=== PATIENT | female | born 1955 | race Caucasian/White ===

== ENCOUNTER 2022-11-11 22:46 | Emergency (ER) | payer OTHER, MEDICAID ==
[~2022-11-11] VITALS: Ht 170.2 cm; Wt 68.0 kg
[~2022-11-11 22:46] MED LIST: ATENOLOL; DOCUSATE; FAMOTIDINE; HCTZ; LISINOPRIL; PEPCID; [UNRECOGNIZED DRUG - OTHER]
[2022-11-11] MEDS ORDERED: HYDROMORPHONE HCL/PF 2MG/ML CPJ IV ONE (23:30)
[2022-11-11] MEDS ORDERED: CYCLOBENZAPRINE 10MG TABLET PO ONE (23:30)
[2022-11-11] MEDS ORDERED: PREDNISONE 20MG TABLET PO ONE (23:30)
[2022-11-12] MEDS ORDERED: KETOROLAC 30MG/ML VIAL IV ONE (01:45)
[2022-11-12] MEDS ORDERED: ACETAMINOPHEN 325MG TABLET PO ONE (01:45)
[2022-11-12 02:27] VITALS: BP 182/116
[2022-11-12] MEDS ORDERED: P20 MT (03:34)
[2022-11-12] MEDS ORDERED: HYDR-4001 MT (03:34)
== END 2022-11-12 04:05 | disposition home or self-care (01) ==
LOC: ER 22:46
DX: M54.42 Lumbago with sciatica, left side (principal); M54.41 Lumbago with sciatica, right side; I10 Essential (primary) hypertension; I25.2 Old myocardial infarction
CPT/HCPCS: 96374; 96375; 99284; J1170; J1885; J7512